=== PATIENT | female | born 1965 | race Caucasian/White ===

== ENCOUNTER 2020-12-19 16:36 | Outpatient (CLI) | payer BC, SELFPAY ==
--- NOTE | ~2020-12-19 | MM_ITS ---
EXAMINATION: MM screening olivia BI w nori HISTORY: Screening mammogram TECHNIQUE: Craniocaudal and mediolateral oblique 3-D tomosynthesis images were obtained and synthetic 2-D images were generated. CAD analysis was submitted and interpreted. COMPARISON: 09/15/2017 diagnostic left digital mammogram and limited left breast ultrasound 08/17/2017 and 08/14/2016 bilateral digital screening mammogram examinations BREAST PARENCHYMAL COMPOSITION: The breasts are heterogeneously dense, which may obscure small masses . FINDINGS: There is no evidence of suspicious mass, calcification, or architectural distortion to sugg est malignancy in either breast. There has been no suspicious interval change. IMPRESSION: 1. No mammographic evidence of malignancy. 2. Recommend routine screening mammography in one year. Reviewed, dictated and finalized at location A. [employer]
== END 2020-12-19 16:37 | disposition home or self-care (01) ==
LOC: ANHIMG 16:39
PROVIDERS: PCP Internal Medicine Endocrinology, Diabetes & Metabolism; Visit Provider Obstetrics & Gynecology
DX: Z12.31 Encounter for screening mammogram for malignant neoplasm of breast (principal)
CPT/HCPCS: 77063; 77067

== ENCOUNTER 2021-08-28 13:10 | Emergency (ER) | payer BC, SELFPAY ==
[2021-08-28] VITALS (11 sets, daily range): BP systolic 133–145; BP diastolic 76–84; PULSE 56–74; RESP 13–18; TEMP 36.1; O2SAT 98–100
--- NOTE | ~2021-08-28 | CT_ITS ---
EXAMINATION: CT abdomen pelvis wo con DATE: 08/28/2021 14:19 INDICATION: Right chest and flank pain TECHNIQUE: Computed tomography (CT) of the abdomen and pelvis was performed without intravenous contr ast. The dose-length product was 195.09 mGy-cm. Automated exposure control and iterative reconstructi on technique were employed. COMPARISON: None. FINDINGS: Lung bases are unremarkable. No significant pleural or pericardial effusion. The liver, spl een, pancreas, adrenal glands and kidneys are unremarkable. Gallbladder is present. Nonobstructive torsten wel gas pattern. No abnormal pelvic masses or fluid collections. No free air or free fluid. Levoscoli osis. Advanced degenerative disc disease at L2-3 with retrolisthesis at this level. IMPRESSION: 1. No acute abdominal abnormality. Reviewed, dictated and finalized at location B.
--- NOTE | ~2021-08-28 | XR_ITS ---
EXAMINATION: XR chest 2V DATE: 08/28/2021 13:26 INDICATION: Chest pain. TECHNIQUE: Frontal and lateral views of the chest were obtained. COMPARISON: Chest 2 views 01/10/2018 FINDINGS: The chest demonstrates clear lungs without pneumonia, pleural effusion, or pneumothorax. Th e heart size is normal. IMPRESSION: 1. No acute cardiopulmonary disease. Reviewed, dictated and finalized at location A.
--- NOTE | 2021-08-28 13:12 | ECG_ITS ---
Measurements Intervals [place] Rate: 73 P: 54 CO: 137 QRS: -29 QRSD: 80 T: 52 QT: 412 QTc: 457 Interpretive Statements SINUS RHYTHM INCOMPLETE RIGHT BUNDLE BRANCH BLOCK BORDERLINE R WAVE PROGRESSION, ANTERIOR LEADS BORDERLINE T WAVE ABNORMALITY- ANTERIOR LEADS BASELINE ARTIFACT- I, II, III, AVR, AVL, AVF BORDERLINE ECG Electronically Signed On 08-28-2021 13:20:41 CDT by Jose Bernard D.O.
[2021-08-28 13:30] LABS: Basophils Absolute Auto 0.1 K/mm3 (0.0-0.1); Basophils Percent Auto 0.7 % (0.2-1.2); Eosinophils Absolute Auto 0.4 K/mm3 (0-0.3); Hematocrit 42.1 % (37.0-47.0); Hemoglobin 14.6 g/dL (12.0-15.0); Immature Granulocyte Absolute 0.02 K/mm3 (0.00-0.031); Immature Granulocyte Percent A 0.2 % (0-0.5); Lymphocytes Absolute Auto 2.47 K/mm3 (0.9-3.2); Lymphocytes Percent Auto 24.2 % (18.3-44.2); Mean Corpuscular HGB Conc 34.7 g/dl (32-36); Mean Corpuscular Hemoglobin 34.5 pg (26-34); Mean Corpuscular Volume 99.5 fl (80-100); Mean Platelet Volume 9.1 fl (7.4-10.4); Monocytes Absolute Auto 0.7 K/mm3 (0.1-0.6); Monocytes Percent Auto 6.8 % (2.6-8.5); Neutrophils Absolute Auto 6.6 K/mm3 (1.3-6.7); Neutrophils Percent Auto 64.1 % (45.5-73.1); Platelet Count Result 350 k/mm3 (150-375); Red Blood Count 4.23 M/mm3 (4.2-5.4); Red Cell Distribution Width 12.1 % (11.5-14.5); White Blood Count 10.2 K/mm3 (4.5-10.0)
[2021-08-28 13:39] LABS: Anion Gap 6 mmol/L (8-16); Blood Urea Nitrogen 15 mg/dL (7-17); Calcium 9.3 mg/dL (8.4-10.2); Carbon Dioxide 29 mmol/L (22-30); Chloride 102 mmol/L (98-107); Estimated CRCL calculation 60 ml/min; Estimated Glomerular Filt Rate > 60; Glucose 114 mg/dL (65-110); Potassium 3.4 mmol/L (3.4-5.0); Prothrombin Time 12.8 Seconds (11.1-14.7); Sodium 137 mmol/L (137-145)
[2021-08-28 13:40] LABS: Partial Thromboplastin Time 30.1 SECONDS (22.3-36.8)
--- NOTE | 2021-08-28 14:01 | ED.CHESTPAIN ---
HPI - Chest Pain General Chief Complaint: Chest Pain Stated Complaint: Chest/Back Pain Time Seen by Provider: 08/28/21 13:51 Source: patient History of Present Illness HPI narrative: Patient reports right-sided back back pain that radiates to her chest. Is sharp, constant, started last night worse with deep inspiration otherwise no other aggravating or alleviating factors, no change with exertion. She denies nausea vomiting diarrhea fevers cough congestion, or lightheadedness. she denies any trauma to the area Related Data Allergies Allergy/AdvReac Type Severity Reaction Status Date / Time No Known Allergies Allergy Unverified 01/12/18 12:11 Review of Systems Review of Systems: CONSTITUTIONAL: Denies fever, chills, or sweats. EYES: Denies visual changes, redness, or discharge. ENT: Denies rhinorrhea, congestion, sore throat, or otalgia. CARDIOVASCULAR: Denies palpitations, or edema. RESPIRATORY: Denies cough or dyspnea. GASTROINTESTINAL: Denies abdominal pain, nausea, vomiting, or diarrhea. GENITOURINARY: Denies dysuria or hematuria. SKIN: Denies rash or itching. MUSCULOSKELETAL: Denies joint pain, or myalgia. NEUROLOGIC: Denies headache, numbness, dizziness, or weakness. PSYCHIATRIC: Denies anxiety or depression. All systems reviewed & are unremarkable except as noted in HPI and below PMFSH Past Medical History Medical History (Updated 08/28/21 @ 16:57 by Lexa Barger MD) Scoliosis Social History Social History (Updated 08/28/21 @ 14:07 by Lexa Barger MD) Smoking status: Never smoker Exam Narrative: GENERAL: Well-appearing, well-nourished, and in mild distress due to pain HEAD: Normocephalic, atraumatic. EYES: PERRLA and EOMI. ENT: Nares clear, no rhinorrhea or epistaxis. Mucous membranes moist. NECK: Supple. No masses. No JVD CHEST: Clear to auscultation. No respiratory distress. No wheezes rales or rhonchi HEART: Regular rate and rhythm. No murmur heard. Normal peripheral pulses. ABDOMEN: Soft, nontender, nondistended, normal active bowel sounds. EXTREMITIES: Normal range of motion. No edema. SKIN: Warm, dry, no rash. NEURO: No focal deficits. Alert and oriented x3. PSYCH: Normal mood and affect. Course Reevaluation(s) Reevaluation #1: Patient reports feeling improved Date: 08/28/21 Time: 16:53 Vital Signs Vital signs: Vital Signs Temperature 36.1 C L 08/28/21 13:12 Pulse Rate 74 08/28/21 13:12 Respiratory Rate 18 08/28/21 13:12 Blood Pressure 143/84 H 08/28/21 13:12 Pulse Oximetry 100 08/28/21 13:12 Temperature 36.1 C L 08/28/21 13:12 Pulse Rate 65 08/28/21 17:30 Respiratory Rate 16 08/28/21 17:30 Blood Pressure 145/76 H 08/28/21 17:30 Pulse Oximetry 100 08/28/21 17:30 MDM - Chest Pain MDM Narrative Medical decision making narrative: H&P as above, vss, pt looks clinically well, exam without focal neurological deficits lungs are clear no focal areas of abdominal pain, labs clinically unremarkable to include a dimer and a single troponin after several hours of consistent pain, img without life-threatening process or clear etiology of symptoms, additional labs/img considered, symptomatic relief available as needed, on reevaluation pt continues to looks clinically well. Suspect thoracic wall/chest wall pain. Pain is primarily in the paraspinal area and radiates to the chest and flank. With a negative work-up and patient history of scoliosis primary concern is for muscle spasm/muscle strain, dns PE, dissection, pneumothorax, ACS. plan to tx/monitor as op w/ pcm f/u findings/plan discussed with pt, pt agree/comfortable with plan, return precautions given Lab Data Result diagrams: 08/28/21 13:20 08/28/21 13:20 Labs: Lab Results 08/28/21 08/28/21 08/28/21 Range/Units 13:20 13:20 13:20 WBC 10.2 H (4.5-10.0) K/mm3 RBC 4.23 (4.2-5.4) M/mm3 Hgb 14.6 (12.0-15.0) g/dL Hct 42.1 (37.0-47.0) % MCV 99.5
[2021-08-28 14:03] LABS: Troponin I < 0.012 ng/mL (0.000-0.034)
[2021-08-28] MEDS: ASPIRIN 81 MG CHEWABLE TABLET 324 MG PO (14:06)
[2021-08-28] MEDS: SODIUM CHLORIDE 0.9% IV 1,000 ML 999 ML IV CONT (14:12)
[2021-08-28] MEDS: MORPHINE SULFATE (*CRX) 4 MG/ML INJ IV PUSH ×2 (14:12→16:23)
--- NOTE | 2021-08-28 15:26 | PC.NURSE ---
Called lab and spoke to Nena to add on D-Dimer
[2021-08-28 15:45] LABS: D Dimer 0.27 ug/mL (<0.48)
[2021-08-28] MEDS: CYCLOBENZAPRINE HCL 10 MG TABLET PO (16:24)
--- NOTE | 2021-08-28 17:16 | PC.NURSE ---
Doctor educated pt on diagnosis, pt aware and understands teaching, no further questions or concerns, pt states she is ready to be discharged
== END 2021-08-28 17:32 | disposition home or self-care (01) ==
PROVIDERS: Emergency Medicine; Emergency Provider Emergency Medicine; PCP Internal Medicine Endocrinology, Diabetes & Metabolism
DX: M54.6 Pain in thoracic spine (principal); I45.10 Unspecified right bundle-branch block; R94.31 Abnormal electrocardiogram [ECG] [EKG]
CPT/HCPCS: 36415; 71046; 74176; 80048; 84484; 85025; 85380; 85610; 85730; 93005; 96361; 96374; 96376; 99284; A9270; J2270; J7030

== ENCOUNTER 2021-12-23 16:26 | Outpatient (CLI) | payer BC, SELFPAY ==
--- NOTE | ~2021-12-23 | MM_ITS ---
EXAMINATION: MM screening olivia BI w nori HISTORY: Screening TECHNIQUE: Craniocaudal and mediolateral oblique 3-D tomosynthesis images were obtained and synthetic 2-D images were generated. CAD analysis was submitted and interpreted. COMPARISON: Comparison to multiple prior studies sequentially, with oldest reviewed study dated 08/05. BREAST PARENCHYMAL COMPOSITION: The breasts are extremely dense, which lowers the sensitivity of mamm ography FINDINGS: There is no evidence of suspicious mass, calcification, or architectural distortion to sugg est malignancy in either breast. There has been no suspicious interval change. IMPRESSION: 1. No mammographic evidence of malignancy. 2. Recommend routine screening mammography in one year. BI-RADS Category 1: Negative Reviewed, dictated and finalized at location A. [employer]ARY SUPERVISOR
== END 2021-12-23 16:27 | disposition home or self-care (01) ==
LOC: ANHIMG 16:28
PROVIDERS: PCP Internal Medicine Endocrinology, Diabetes & Metabolism; Visit Provider Obstetrics & Gynecology
DX: Z12.31 Encounter for screening mammogram for malignant neoplasm of breast (principal)
CPT/HCPCS: 77063; 77067

== ENCOUNTER 2023-01-27 15:47 | Outpatient (CLI) | payer BC, SELFPAY ==
--- NOTE | ~2023-01-27 | MM_ITS ---
EXAMINATION: MM screening olivia BI w nori HISTORY: Screening TECHNIQUE: Craniocaudal and mediolateral oblique 3-D tomosynthesis images were obtained and synthetic 2-D images were generated. CAD analysis was submitted and interpreted. COMPARISON: Comparison to multiple prior studies sequentially, with oldest reviewed study dated 05/2016. BREAST PARENCHYMAL COMPOSITION: The breasts are extremely dense, which lowers the sensitivity of mamm ography. FINDINGS: There is no evidence of suspicious mass, calcification, or architectural distortion to sugg est malignancy in either breast. There has been no suspicious interval change. IMPRESSION: 1. No mammographic evidence of malignancy. 2. Recommend routine screening mammography in one year. BI-RADS Category 1: Negative Reviewed, dictated and finalized at location A.
== END 2023-01-27 15:48 | disposition home or self-care (01) ==
LOC: ANHIMG 15:48
PROVIDERS: PCP Internal Medicine Endocrinology, Diabetes & Metabolism; Visit Provider Obstetrics & Gynecology
DX: Z12.31 Encounter for screening mammogram for malignant neoplasm of breast (principal)
CPT/HCPCS: 77063; 77067

== ENCOUNTER 2023-06-07 07:00 | Outpatient (NON) | payer BC, SELFPAY | END 2023-06-07 07:01 | disposition home or self-care (01) | PROVIDERS: PCP Internal Medicine Endocrinology, Diabetes & Metabolism; Visit Provider Nurse Practitioner | DX: L72.0 Epidermal cyst (principal) | CPT/HCPCS: 88304 ==

== ENCOUNTER 2024-01-31 13:10 | Outpatient (CLI) | payer BC, SELFPAY ==
--- NOTE | ~2024-01-31 | MM_ITS ---
EXAMINATION: MM screening olivia BI w nori HISTORY: Screening mammogram TECHNIQUE: Craniocaudal and mediolateral oblique 3-D tomosynthesis images were obtained and synthetic 2-D images were generated. CAD analysis was submitted and interpreted. COMPARISON: 01/27/2023, 12/23/2021 bilateral screening mammogram examinations BREAST PARENCHYMAL COMPOSITION: The breasts are heterogeneously dense, which may obscure small masses . FINDINGS: There is no evidence of suspicious mass, calcification, or architectural distortion to sugg est malignancy in either breast. There has been no suspicious interval change. IMPRESSION: 1. No mammographic evidence of malignancy. 2. Recommend routine screening mammography in one year. BI-RADS Category 1: Negative Reviewed, dictated and finalized at location A.
== END 2024-01-31 13:11 | disposition home or self-care (01) ==
LOC: ANHIMG 13:12
PROVIDERS: PCP Internal Medicine Endocrinology, Diabetes & Metabolism; Visit Provider Obstetrics & Gynecology
DX: Z12.31 Encounter for screening mammogram for malignant neoplasm of breast (principal)
CPT/HCPCS: 77063; 77067